=== PATIENT | male | born 1965 | race Caucasian/White ===

== ENCOUNTER 2025-02-16 09:15 | Outpatient (OUT) | payer OTHER, SELFPAY ==
[2025-02-17 08:12] LABS: PSA, Free 0.41 ng/mL; Prostate Specific Ag 1.9 ng/mL (0.0-4.0)
[2025-02-19 10:08] LABS: Free Testosterone(Direct) 9.8 pg/mL (6.6-18.1); Testosterone 397 ng/dL (264-916)
== END 2025-02-16 09:16 | disposition home or self-care (01) ==
LOC: LAB 09:19
PROVIDERS: PCP Family Medicine; Visit Provider Family Medicine
DX: E34.9 Endocrine disorder, unspecified (principal); N40.0 Benign prostatic hyperplasia without lower urinary tract symptoms; N52.9 Male erectile dysfunction, unspecified
CPT/HCPCS: 36415; 84153; 84154; 84402; 84403